=== PATIENT | male | born 1985 | race American Indian/Alaskan Native ===

== ENCOUNTER 2018-04-22 16:22 | Emergency (ER) | payer OTHER ==
[2018-04-22 16:22] VITALS: BMI 23.7
[2018-04-22 17:24] VITALS: BP 144/90; PULSE 76; RESP 18; TEMP 98.1; O2SAT 95
== END 2018-04-22 17:21 | disposition left against medical advice (07) ==
LOC: C.ER 16:22
DX: Z02.89 Encounter for other administrative examinations (principal)